=== PATIENT | male | born 1995 | race Asian ===

== ENCOUNTER 2016-04-02 17:47 | Emergency (ER) | payer OTHER ==
[2016-04-02 17:54] VITALS: RESP 16
--- NOTE | 2016-04-02 18:09 | EDPHY ---
H & P Stated Complaint: fell skiing right knee pain, no other injuries Time Seen by Provider: 04/02/16 17:56 HPI/ROS: CHIEF COMPLAINT: Right knee pain and swelling HISTORY OF PRESENT ILLNESS: The patient presents the emergency department with complaints of right knee pain and swelling after he twisted his right knee while skiing. The patient did not strike his head or lose consciousness. He has no additional complaints of low back pain, chest pain, shortness of breath or other traumatic concerns. The patient does have a sensation of instability in his right knee. REVIEW OF SYSTEMS: A comprehensive 10 point review of systems is otherwise negative aside from elements mentioned in the history of present illness. Source: Patient Exam Limitations: No limitations - Personal History Current Tetanus/Diphtheria Vaccine: Unsure Current Tetanus Diphtheria and Acellular Pertussis (TDAP): Unsure - Medical/Surgical History Hx Asthma: No Hx Chronic Respiratory Disease: No Hx Diabetes: No Hx Cardiac Disease: No Hx Renal Disease: No Hx Cirrhosis: No Hx Alcoholism: No Hx HIV/AIDS: No Hx Splenectomy or Spleen Trauma: No Other PMH: denies - Social History Smoking Status: Never smoked Alcohol Use: None Drug Use: None - Physical Exam Exam: General Appearance: Alert, no distress Neurological: Sensation intact to light touch throughout the right lower extremity Skin: Warm and dry, no rashes Musculoskeletal: Tenderness to palpation over right knee Extremities: Right knee effusion, limited range of motion, extensor mechanism intact Constitutional: Initial Vital Signs Temperature (C) 36.5 C 04/02/16 17:52 Heart Rate 76 04/02/16 17:52 Respiratory Rate 16 04/02/16 17:52 Blood Pressure 140/76 H 04/02/16 17:52 O2 Sat (%) 98 04/02/16 17:52 O2 Delivery Mode Room Air Allergies/Adverse Reactions: No Known Allergies Allergy (Unverified 04/02/16 17:52) Home Medications: Medication Instructions Recorded NK [No Known Home Meds] 04/02/16 Medical Decision Making - Diagnostics Imaging: Right Knee, 5 Views, at 6:11 p.m. Clinical History: 20-year-old male with right knee pain after a skiing accident. Comparison Study: None. Findings: On the first image, there is a longitudinally-oriented avulsion fracture off of the proximal lateral tibia. There is a small suprapatellar joint effusion. There is no patellofemoral joint space narrowing or subluxation. Impression: 1. Small longitudinal avulsion fracture off of the proximal lateral tibia. 2. Small suprapatellar joint effusion. If there is further clinical concern regarding the patient's knee pain, correlative MR imaging could be considered. ED Course/Re-evaluation: The patient presents to the ED with a likely lateral collateral ligament injury and possibly an intra-articular ligamentous injury involving his right knee. The patient will be placed in a knee immobilizer and given crutches. He is advised to ice his knee and weight bear as tolerated. He should follow up with our on-call orthopedic surgeon Dr. Olena Reyes for a recheck on Monday. Differential Diagnosis: Differential diagnosis considered includes fracture, sprain, dislocation Departure - Departure Disposition: Home, Routine, Self-Care Clinical Impression: Right knee sprain, Lateral collateral ligament sprain of knee, Avulsion fracture of lateral condyle of tibia Condition: Good Instructions: Knee Sprain (ED) Additional Instructions: 1. Please schedule a follow-up appointment with the orthopedic surgeon you have been referred to for additional evaluation of your knee injury. You may have an injury to the internal ligamentous such as the ACL and PCL which require further workup and potentially surgery. 2. Take Ibuprofen or Motrin 600 mg by mouth three times a day. 3. Knee immobilizer and crutches as needed 4. Please ice knee 30 minutes at a time 4-5 times a day over the next 4 days Referrals: Olena Reyes MD [Medical Doctor] - As per Instructions
--- NOTE | 2016-04-02 18:21 | DX ---
Right Knee, 5 Views, at 6:11 p.m. Clinical History: 20-year-old male with right knee pain after a skiing accident. Comparison Study: None. Findings: On the first image, there is a longitudinally-oriented avulsion fracture off of the proxima l lateral tibia. There is a small suprapatellar joint effusion. There is no patellofemoral joint spac e narrowing or subluxation. Impression: 1. Small longitudinal avulsion fracture off of the proximal lateral tibia. 2. Small suprapatellar joint effusion. If there is further clinical concern regarding the patient's knee pain, correlative MR imaging could be considered.
[2016-04-02 18:48] VITALS: BP 150/79; PULSE 88; TEMP 97.5; O2SAT 96
== END 2016-04-02 18:54 | disposition home or self-care (01) ==
DX: S82.301A Unspecified fracture of lower end of right tibia, initial encounter for closed fracture (principal); S83.421A Sprain of lateral collateral ligament of right knee, initial encounter; X58.XXXA Exposure to other specified factors, initial encounter; Y99.8 Other external cause status; Y93.23 Activity, snow (alpine) (downhill) skiing, snowboarding, sledding, tobogganing and snow tubing
CPT/HCPCS: L1830

== ENCOUNTER 2016-06-07 12:38 | Emergency (ER) | payer OTHER ==
--- NOTE | 2016-06-07 13:22 | EDPHY ---
H & P Time Seen by Provider: 06/07/16 12:48 HPI/ROS: CHIEF COMPLAINT: Pain in right calf. HISTORY OF PRESENT ILLNESS: The patient is a 20-year-old male status post right ACL surgery 7 days ago who presents with right calf pain that began 2 or 3 days ago. He initially had bruising just around the knee but the bruising has now moved toward his foot. Associated with gradually increasing swelling of the entire calf. No calf pain. He has been compliant with his PT exercises. He denies chest pain, shortness of breath, fever, or other complaints. REVIEW OF SYSTEMS: A complete 10-point review of systems was performed and is negative except for those items mentioned in the HPI. Past Medical/Surgical History: ACL tear. Social History: Student, nonsmoker. Smoking Status: Never smoked Physical Exam: General Appearance: Alert, pleasant Eyes: Pupils equal and round, no conjunctival pallor ENT, Mouth: Mucous membranes moist Neck: Normal inspection Respiratory: Lungs are clear to auscultation Cardiovascular: Regular rate and rhythm Neurological: A&O, nonfocal exam Skin: Warm and dry Extremities: Right leg: ecchymosis extending from lower thigh to the ankle with associated swelling of calf. No calf tenderness. Mild tenderness behind knee, no joint effusion. Vascular: 2+ pedal pulses Psychiatric: Mood and affect normal Constitutional: Initial Vital Signs Temperature (C) 36.7 C 06/07/16 12:42 Heart Rate 83 06/07/16 12:42 Respiratory Rate 16 06/07/16 12:42 Blood Pressure 134/95 H 06/07/16 12:42 O2 Sat (%) 96 06/07/16 12:42 O2 Delivery Mode Room Air Allergies/Adverse Reactions: No Known Allergies Allergy (Verified 06/07/16 12:41) Home Medications: Medication Instructions Recorded NAPROXEN SODIUM 06/07/16 Medical Decision Making ED Course/Re-evaluation: 20-year-old male status post right ACL repair by Dr. Lake 7 days ago presents with right calf pain and significant bruising. The pain began 3 days ago and the bruising has been spreading down to his right foot. He does not have calf tenderness on exam but has significant ecchymosis from his knee to his ankle. He is not complaining of chest pain or shortness of breath. He has been compliant with his PT exercises and his physical therapist referred him here today upon hearing about the calf pain. A right lower extremity ultrasound has been ordered. 1353: Ultrasound results conveyed to me by the radiologist. Negative for DVT. I discussed these results with him at this time. I have instructed him to wear his compression socks and elevate his leg when possible. He understands to follow up with his orthopedic surgeon for reevaluation. He is comfortable with this plan. Differential Diagnosis: Differential diagnosis includes though it is not limited to fracture, dislocation, tendon disruption, neurovascular compromise. Departure - Departure Disposition: Home, Routine, Self-Care Clinical Impression: Right leg swelling Condition: Good Instructions: Knee Pain (ED) Additional Instructions: Elevate your leg when possible. Continue to use your compression stockings. Follow up with your orthopedic surgeon for reevaluation. Return to the emergency department for any serious worsening of condition. Referrals: Noe Lake MD [Medical Doctor] - As per Instructions Stand Alone Forms: School Excuse, Statement of Treatment Report Scribed for: Lani Swanson Report Scribed by: Diaz Hall Date of Report: 06/07/16 Time of Report: 13:19 Physician Review and Approval Statement: 06/07/16 13:19 Portions of this note were transcribed by a chief medical physicist. I personally performed a history, physical exam, medical decision making, and confirmed accuracy of information the transcribed note.
[2016-06-07 14:20] VITALS: BP 141/103; PULSE 82; RESP 20; TEMP 99; O2SAT 97
== END 2016-06-07 14:18 | disposition home or self-care (01) ==
DX: M79.89 Other specified soft tissue disorders (principal)

== ENCOUNTER 2017-01-22 01:54 | Emergency (ER) | payer OTHER ==
[2017-01-22 01:59] VITALS: RESP 16
--- NOTE | 2017-01-22 02:16 | EDPHY ---
H & P Stated Complaint: Coughing and CP for a week Time Seen by Provider: 01/22/17 02:07 HPI/ROS: HPI The patient presents with chest pain which has been present for the last 1 week and has been intermittent. It started spontaneously, improved for a few days, now is worse. It is a sharp pain which is worse with movement, does not radiate , it is associated with cough. Denies any leg swelling, recent airplane flights , fevers or chills. He has no prior history of similar.. REVIEW OF SYSTEMS Constitutional: No fever, no chills. Eyes: No discharge. ENT: No sore throat. Cardiovascular: No chest pain, no palpitations. Respiratory: No cough, no shortness of breath. Gastrointestinal: No abdominal pain, no vomiting. Genitourinary: No hematuria. Musculoskeletal: No back pain. Skin: No rashes. Neurological: No headache. PMHx: Right-sided ACL repair 8 months ago Soc Hx: College student PHYSICAL General Appearance: Alert, no distress Eyes: Pupils equal and round no pallor or injection ENT, Mouth: Mucous membranes moist Respiratory: There are no retractions, lungs are clear to auscultation Cardiovascular: Regular rate and rhythm Gastrointestinal: Abdomen is soft and non-tender, no masses, bowel sounds normal Neurological: A&O, moves all extremities Skin: Warm and dry, no rashes Musculoskeletal: Neck is supple non tender Extremities: symmetrical, full range of motion Psychiatric: Patient is oriented X 3, there is no agitation Source: Patient Exam Limitations: No limitations - Personal History Current Tetanus/Diphtheria Vaccine: Unsure Current Tetanus Diphtheria and Acellular Pertussis (TDAP): Unsure - Medical/Surgical History Hx Asthma: No Hx Chronic Respiratory Disease: No Hx Diabetes: No Hx Cardiac Disease: No Hx Renal Disease: No Hx Cirrhosis: No Hx Alcoholism: No Hx HIV/AIDS: No Hx Splenectomy or Spleen Trauma: No Other PMH: r acl - Social History Smoking Status: Never smoked Constitutional: Initial Vital Signs Temperature (C) 36.8 C 01/22/17 01:56 Heart Rate 66 01/22/17 01:56 Respiratory Rate 16 01/22/17 01:56 Blood Pressure 135/79 H 01/22/17 01:56 O2 Sat (%) 98 01/22/17 01:56 O2 Delivery Mode Room Air Allergies/Adverse Reactions: No Known Allergies Allergy (Verified 01/22/17 01:59) Home Medications: Medication Instructions Recorded NK [No Known Home Meds] 01/22/17 Medical Decision Making - Diagnostics EKG Interpretation: EKG: Complete interpretation has been separately recorded in the [facility] archive. Summary impression: Normal sinus rhythm Imaging Results: Chest x-ray two view shows no infiltrate, no pneumothorax, no cardiomegaly, interpreted by me, radiology interpretation is pending. Differential Diagnosis: 21-year-old male who presents with chest pain intermittently for the last 1 week and mild cough. On exam, vital signs are normal. Chest and lungs are clear. Differential diagnosis includes muscle sprain, costochondritis, pericarditis, less likely pneumothorax. In the emergency department, chest x-ray and EKG were unremarkable. I feel he is likely suffering from a muscle sprain versus costochondritis and I have explained this to him. He was given instructions for ibuprofen and Tylenol. He will be discharged from the emergency department in good condition. Departure - Departure Disposition: Home, Routine, Self-Care Clinical Impression: Chest pain Qualifiers: Chest pain type: unspecified Qualified Code(s): R07.9 - Chest pain, unspecified Condition: Good Instructions: Chest Pain (ED), Chest Wall Pain (ED) Additional Instructions: I recommend that you take ibuprofen 400 mg with acetaminophen 650 mg every 6 hours as needed for your pain. You could also use an ice pack to see if this helps. You should follow up with [facility] if the pain continues in the next few days. Referrals: [facility],. [Clinic] - As per Instructions
--- NOTE | 2017-01-22 02:22 | CPEKG ---
Heart Rate: 61 RR Interval: 984 P-R Interval: 168 QRSD Interval: 86 QT Interval: 388 QTC Interval: 391 P [place]: 76 QRS [place]: 63 T Wave [place]: 46 EKG Severity - NORMAL ECG - EKG Impression: SINUS RHYTHM Electronically Signed By: Zuleika Townsend 22-Jan-2017 06:07:14
[2017-01-22 02:57] VITALS: BP 126/71; PULSE 70; TEMP 98.1; O2SAT 97
== END 2017-01-22 02:56 | disposition home or self-care (01) ==
DX: R07.9 Chest pain, unspecified (principal)

== ENCOUNTER 2018-03-24 23:04 | Emergency (ER) | payer OTHER ==
[2018-03-24 23:11] VITALS: BP 117/85
--- NOTE | 2018-03-24 23:27 | EDPHY ---
H & P Smoking Status: Never smoked Time Seen by Provider: 03/24/18 23:13 HPI/ROS: CHIEF COMPLAINT: Left 5th digit injury HISTORY OF PRESENT ILLNESS: 22-year-old [id number] male was playing volleyball this evening sustained a stubbing injury to his left 5th digit. Pain to the 5th phalanx proximal aspect. Intact skin. No bleeding. No paresthesia. No hand or wrist pain. PHYSICAL EXAM (Prior to examination, patient consented to physical exam, hands were washed and my usual and customary physical exam procedures followed) 1) GENERAL: Well-developed, well-nourished, alert and oriented. Appears to be in no acute distress. 2) HEAD: Normocephalic 3) HEENT: sclera anicteric 4) LUNGS: Breathing comfortably. 5) SKIN: Intact. No skin changes. 6) MUSCULOSKELETAL: Flexor extensor function intact, FDP FDS intact. Tender to palpation 5th digit proximal phalanx including the MCP. No deformity no angulation. Normal cascading of digit. Remainder of hand and fingers nontender. Brisk capillary refill distally. 7) NEUROLOGIC: Full sensation two-point discrimination intact distally DIFFERENTIAL DIAGNOSIS: In no particular order including but not limited to fracture, sprain, strain, dislocation (Sadia Calero) Constitutional: Initial Vital Signs Temperature (C) 36.4 C 03/24/18 23:06 Heart Rate 90 03/24/18 23:06 Respiratory Rate 16 03/24/18 23:06 Blood Pressure 117/85 H 03/24/18 23:06 O2 Sat (%) 99 03/24/18 23:06 O2 Delivery Mode Room Air Allergies/Adverse Reactions: No Known Allergies Allergy (Verified 03/24/18 23:08) Home Medications: Medication Instructions Recorded Calcium 03/24/18 Vitamin D3 03/24/18 MDM/Departure - MDM Imaging Results: Images reviewed myself (Sadia Calero) Procedures: PHYSICIAN DOCUMENTATION: The patient was evaluated and managed by the Physician Getter Welder. My co- signature indicates that I have reviewed this chart and I agree with the findings and plan of care as documented. I am the secondary supervising physician. (Zuleika Townsend) Procedure: Splint A raquel-tape and aluminum finger splint was applied by ER biodiesel production technician. After application of the splint I returned and re-examined the patient. The splint was adequately immobilizing the joint and distal to the splint the patient's circulation and sensation were intact. Patient shows no signs of compartment syndrome. Was given orthopedic precautions. (Sadia Calero) - Depart Disposition: Home, Routine, Self-Care Clinical Impression: Metacarpal bone fracture Qualifiers: Encounter type: initial encounter Metacarpal bone: fifth Fracture type: closed Metacarpal location: other portion of metacarpal Fracture alignment: nondisplaced Laterality: left Qualified Code(s): S62.397A - Other fracture of fifth metacarpal bone, left hand, initial encounter for closed fracture Condition: Good Instructions: Finger Fracture (ED) Additional Instructions: Return to the ER immediately if you experience discoloration, have worsening pain, numbness, tingling, or any other symptoms that concern you. If you received x-rays in the emergency department today, be advised, that ligamentous , tendon, muscular, and other non-bony injury cannot be fully ruled out. Try to keep your affected extremity elevated above the level of your chest, and keep cold packs on the affected area, for the next 48 hours. Referrals: Nick Lewis MD [Medical Doctor] - 2-3 days, call for appt.
== END 2018-03-24 23:46 | disposition home or self-care (01) ==
DX: S62.397A Other fracture of fifth metacarpal bone, left hand, initial encounter for closed fracture (principal); W21.06XA Struck by volleyball, initial encounter; Y93.68 Activity, volleyball (beach) (court); Y92.9 Unspecified place or not applicable; Y99.9 Unspecified external cause status
CPT/HCPCS: L3925